=== PATIENT | female | born 1980 | race Hispanic/Latino ===

== ENCOUNTER 2018-09-24 09:21 | Inpatient (IN) | payer BC ==
[2018-09-24] MEDS ORDERED: DUONEB *Not for PRN Use IH ONE ×2 (09:41→10:47)
--- NOTE | 2018-09-24 10:17 | XRay Report ---
AP CHEST: HISTORY: Hypertension AP view of the chest demonstrates a normal mediastinal and cardiac contour with clear lungs and normal bony and soft tissue structures. IMPRESSION: Unremarkable AP chest.
[2018-09-24 10:20] LABS: Basophils % (Auto) 0.3 % (0.0-1.8); Eosinophils % (Auto) 0.4 % (0.0-4.3); Hematocrit 35.9 % (30.3-42.9); Hemoglobin 12.1 gm/dl (10.1-14.3); Lymphocytes # (Auto) 1.6 K/mm3 (1.2-5.4); Lymphocytes % (Auto) 23.6 % (13.4-35.0); Mean Corpuscular HGB Conc 34 % (30-34); Mean Corpuscular Volume 80 fl (79-97); Monocytes # (Auto) 0.4 K/mm3 (0.0-0.8); Monocytes % (Auto) 5.8 % (0.0-7.3); Platelet Count 288 K/mm3 (140-440); Red Blood Count 4.51 M/mm3 (3.65-5.03); Red Cell Distribution Width 16.3 % (13.2-15.2)
[2018-09-24 10:35] LABS: INR 0.89 (0.87-1.13)
[2018-09-24 10:36] LABS: Partial Thromboplastin Time 33.8 Sec. (24.2-36.6)
[2018-09-24 11:17] LABS: Alanine Aminotransferase 39 units/L (7-56); Albumin 3.8 g/dL (3.9-5); BUN/Creatinine Ratio 11; Blood Urea Nitrogen 9 mg/dL (7-17); Calcium 8.8 mg/dL (8.4-10.2); Hemolysis Index 4
[2018-09-24 11:18] LABS: Bilirubin,Direct < 0.2 mg/dL (0-0.2)
[2018-09-24] MEDS ORDERED: ATIVAN IV ONE (11:19)
[2018-09-24] MEDS ORDERED: NACL 0.9% 1000 ML 1,000 ML IV ONE (11:30)
--- NOTE | 2018-09-24 11:40 | Emergency Department Report ---
ED Shortness of Breath HPI - General Chief Complaint: Dyspnea/Respdistress Stated Complaint: ELENO Time Seen by Provider: 09/24/18 09:40 Source: patient, EMS Mode of arrival: Stretcher Limitations: No Limitations - History of Present Illness Initial Comments: This a 38-year-old female reports chest sedation of asthma work today. EMS was summoned. She received Solu-Medrol steroids and albuterol. She improved some degree. I do not have the benefit of the EMS report but have verified that she received the above medications. She complains of chest tightness which she states is associated with her asthma. Does not radiate. She does not complain of pleuritic pain. Does not complain of significant cough. She has never been intubated. MD Complaint: "asthma attack" -: Gradual Radiation: other (no radiation) Severity: moderate Quality: other (tightness associated with wheezing) Consistency: constant Improves With: nothing Worsens With: nothing Known History Of: asthma Associated Symptoms: denies other symptoms Treatments Prior to Arrival: other - Related Data Allergies Allergy/AdvReac Type Severity Reaction Status Date / Time levofloxacin [From Levaquin] Allergy Swelling Verified 09/24/18 09:26 ED Review of Systems ROS: Stated complaint: ELENO Other details as noted in HPI Constitutional: denies: chills, fever Eyes: denies: eye pain, eye discharge, vision change ENT: denies: ear pain, throat pain Respiratory: shortness of breath, wheezing. denies: cough Cardiovascular: denies: chest pain, palpitations Endocrine: no symptoms reported Gastrointestinal: denies: abdominal pain, nausea, diarrhea Genitourinary: denies: urgency, dysuria, discharge Musculoskeletal: denies: back pain, joint swelling, arthralgia Skin: denies: rash, lesions Neurological: denies: headache, weakness, paresthesias Psychiatric: denies: anxiety, depression Hematological/Lymphatic: denies: easy bleeding, easy bruising ED Past Medical Hx - Past Medical History Previous Medical History?: Yes Hx Hypertension: Yes Hx Deep Vein Thrombosis: Yes Hx Asthma: Yes Additional medical history: afib. hypothyroidism - Surgical History Past Surgical History?: Yes Additional Surgical History: eye sx. . BLE for DVT - Social History Smoking Status: Never Smoker Substance Use Type: None ED Physical Exam - General Limitations: No Limitations General appearance: alert, in no apparent distress, other (mildly increased work of breathing) - Head Head exam: Present: atraumatic, normocephalic - Eye Eye exam: Present: normal appearance. Absent: scleral icterus - ENT ENT exam: Present: mucous membranes moist - Neck Neck exam: Present: normal inspection. Absent: tenderness, meningismus - Respiratory Respiratory exam: Present: wheezes, decreased breath sounds, prolonged expiratory. Absent: respiratory distress - Cardiovascular Cardiovascular Exam: Present: normal rhythm, tachycardia. Absent: systolic murmur, diastolic murmur, rubs, gallop - GI/Abdominal GI/Abdominal exam: Present: soft, normal bowel sounds. Absent: distended, tenderness, guarding, rebound - Extremities Exam Extremities exam: Present: normal inspection - Back Exam Back exam: Present: normal inspection - Neurological Exam Neurological exam: Present: alert, oriented X3, CN II-XII intact. Absent: motor sensory deficit - Psychiatric Psychiatric exam: Present: normal affect, anxious - Skin Skin exam: Present: warm, dry, intact, normal color. Absent: rash ED Course Vital Signs 09/24/18 09/24/18 09/24/18 09:24 09:26 09:30 Temperature 98.3 F Pulse Rate 101 H Pulse Rate [ Posterior Bilateral Throughout] Respiratory 22 Rate Respiratory Rate [Posterior Bilateral Throughout] Blood Pressure 144/83 144/83 O2 Sat by Pulse 97 99 100 Oximetry 09/24/18 09/24/18 09/24/18 09:45 09:46 10:00 Temperature Pulse Rate Pulse Rate [ 79 Posterior Bilateral Throughout] Respiratory 22 Rate Respiratory 24 Rate [Posterior Bilateral Throughout] Blood Pressure 109/52 127/56 O2 Sat by Pulse 100 100 Oximetry 09/24/18 09/24/18 09/24/18 10:15 10:30 10:32 Temperature Pulse Rate 97 H 106 H Pulse Rate [ 90 Posterior Bilateral Throughout] Respiratory 13 19 Rate Respiratory 22 Rate [Posterior Bilateral Throughout] Blood Pressure 131/66 122/73 O2 Sat by Pulse 100 100 Oximetry 09/24/18 09/24/18 10:49 11:08 Temperature Pulse Rate Pulse Rate [ 98 H 92 H Posterior Bilateral Throughout] Respiratory Rate Respiratory 22 22 Rate [Posterior Bilateral Throughout] Blood Pressure O2 Sat by Pulse Oximetry - Reevaluation(s) Reevaluation #1: Patient received with some improvement but persistent distant breath sounds and no under sheriff's changed. She is not in respiratory distress. She is not utilizing accessory muscles. She complains of chest tightness with wheezing. D-dimer was negative. Chest x-ray showed no acute process. A repeat EKG will be reviewed. Patient was discussed with Dr. Noel the admitting hospitalist. 09/24/18 11:39 09/24/18 11:41 Twelve-lead EKG shows nonspecific ST-T wave changes. A repeat Xopenex treatment will be ordered. ED Medical Decision Making - Lab Data Result diagrams: 09/24/18 10:08 09/24/18 10:08 - EKG Data -: EKG Interpreted by Ut EKG shows normal: sinus rhythm, axis, intervals, QRS complexes, ST-T waves Rate: tachycardia - EKG Data Interpretation: nonspecific ST-T wave elissa A second EKG was performed. It shows sinus tachycardia slightly leftward axis nonspecific ST-T wave changes slightly prolonged QTC interval 09/24/18 11:40 09/24/18 11:41 - Radiology Data Radiology results: report reviewed Critical care attestation.: If time is entered above; I have spent that time in minutes in the direct care of this critically ill patient, excluding procedure time. ED Disposition Clinical Impression: Exacerbation of asthma Qualifiers: Asthma severity: severe Asthma persistence: persistent Qualified Code(s): J45.51 - Severe persistent asthma with (acute) exacerbation Chest pain Qualifiers: Chest pain type: unspecified Qualified Code(s): R07.9 - Chest pain, unspecified Disposition: 09 OP ADMIT IP TO THIS HOSP Is pt being admited?: Yes Does the pt Need Aspirin: Yes Condition: Stable Instructions: Chest Pain (ED) Referrals: EARNEST MCKEON MD [Primary Care Provider] - 3-5 Days Time of Disposition: 11:43
[2018-09-24] MEDS ORDERED: ASPIRIN PO ONE (11:44)
[2018-09-24] MEDS ORDERED: XOPENEX IH ONE (12:02)
[2018-09-24 12:46] LABS: Free T4 (Free Thyroxine) 1.21 ng/dL (0.76-1.46)
[2018-09-24] MEDS ORDERED: ASPIRIN ONE (12:58)
[2018-09-24] MEDS ORDERED: PERCOCET 5/325 PO PRN (20:51)
[2018-09-24] MEDS ORDERED: ZOFRAN IV PRN (20:51)
[2018-09-24] MEDS ORDERED: DILAUDID IV PRN (20:51)
[2018-09-24] MEDS ORDERED: TYLENOL PO PRN (20:51)
[2018-09-24] MEDS ORDERED: SODIUM CHLORIDE FLUSH SYRINGE 10 ML IV PRN (20:51)
--- NOTE | 2018-09-24 20:51 | History and Physical Report ---
History of Present Illness Date of examination: 09/24/18 Date of admission: 09/24/18 11:45 Chief complaint: Increasing SOB and wheezing for few hours. History of present illness: 38-year-old female comes in by EMS for increasing SOB and wheezing while at work.Was given Solumedrol IV enroute.COnt to wheeze persistently.Has cough productive of mucoid sputum.No fever or chills.No exacerbating or relieving factors. Past Medical History Previous Medical History?: Yes Hx Hypertension: Yes Hx Deep Vein Thrombosis: Yes Hx Asthma: Yes Additional medical history: afib. hypothyroidism Surgical History Past Surgical History?: Yes Additional Surgical History: eye sx. . BLE for DVT Social History Smoking Status: Never Smoker Substance Use Type: None Family History Htn Review of Systems ROS: Stated complaint: ELENO Other details as noted in HPI Constitutional: denies: chills, fever Eyes: denies: eye pain, eye discharge, vision change ENT: denies: ear pain, throat pain Respiratory: shortness of breath, wheezing. denies: cough Cardiovascular: denies: chest pain, palpitations Endocrine: no symptoms reported Gastrointestinal: denies: abdominal pain, nausea, diarrhea Genitourinary: denies: urgency, dysuria, discharge Musculoskeletal: denies: back pain, joint swelling, arthralgia Skin: denies: rash, lesions Neurological: denies: headache, weakness, paresthesias Psychiatric: denies: anxiety, depression Hematological/Lymphatic: denies: easy bleeding, easy bruising Medications and Allergies Allergies Allergy/AdvReac Type Severity Reaction Status Date / Time levofloxacin [From [facility]] Allergy Swelling Verified 09/24/18 12:59 Home Medications Medication Instructions Recorded Confirmed Last Taken Type Breo Ellipta 100-25 Mcg INH 100 mcg IH DAILY 09/25/18 09/25/18 1 Day Ago History ~09/24/18 100mcg/125mg Levothyroxine 175 mcg PO DAILY 09/25/18 09/25/18 1 Day Ago History ~09/24/18 Metoprolol SUCCINATE ER TAB 25 mg PO QAM 09/25/18 09/25/18 1 Day Ago History ~09/24/18 Pepcid 20 mg PO QHS 09/25/18 09/25/18 1 Day Ago History ~09/24/18 Exam - Constitutional Vitals: Temp Pulse Resp BP Pulse Ox 98.0 F 117 H 18 122/42 98 09/24/18 19:23 09/24/18 19:23 09/24/18 19:23 09/24/18 19:23 09/24/18 19:44 General appearance: Present: severe distress, well-nourished - EENT Eyes: Present: PERRL ENT: hearing intact, clear oral mucosa - Neck Neck: Present: supple, normal ROM - Respiratory Respiratory effort: normal Respiratory: bilateral: diminished, rhonchi, wheezing - Cardiovascular Heart rate: 88 Rhythm: regular Heart Sounds: Present: S1 & S2. Absent: rub, click - Extremities Extremities: no ischemia, pulses intact, pulses symmetrical, No edema Peripheral Pulses: within normal limits - Abdominal General gastrointestinal: Present: soft, non-tender, non-distended, normal bowel sounds Female genitourinary: Present: normal - Rectal Rectal Exam: deferred - Integumentary Integumentary: Present: clear, warm, dry - Musculoskeletal Musculoskeletal: gait normal, strength equal bilaterally - Psychiatric Psychiatric: appropriate mood/affect, intact judgment & insight - Neurologic Neurologic: CNII-XII intact, moves all extremities - Allied Health Allied health notes reviewed: nursing, case management Results - Labs CBC & Chem 7: 09/24/18 10:08 09/24/18 10:08 Labs: Laboratory Last Values WBC 6.9 K/mm3 (4.5-11.0) 09/24/18 10:08 RBC 4.51 M/mm3 (3.65-5.03) 09/24/18 10:08 Hgb 12.1 gm/dl (10.1-14.3) 09/24/18 10:08 Hct 35.9 % (30.3-42.9) 09/24/18 10:08 MCV 80 fl (79-97) 09/24/18 10:08 MCH 27 pg (28-32) L 09/24/18 10:08 MCHC 34 % (30-34) 09/24/18 10:08 RDW 16.3 % (13.2-15.2) H 09/24/18 10:08 Plt Count 288 K/mm3 (140-440) 09/24/18 10:08 Lymph % (Auto) 23.6 % (13.4-35.0) 09/24/18 10:08 [place] % (Auto) 5.8 % (0.0-7.3) 09/24/18 10:08 Eos % (Auto) 0.4 % (0.0-4.3) 09/24/18 10:08 Baso % (Auto) 0.3 % (0.0-1.8) 09/24/18 10:08 Lymph # 1.6 K/mm3 (1.2-5.4) 09/24/18 10:08 [place] # 0.4 K/mm3 (0.0-0.8) 09/24/18 10:08 Eos # 0.0 K/mm3 (0.0-0.4) 09/24/18 10:08 Baso # 0.0 K/mm3 (0.0-0.1) 09/24/18 10:08 Seg Neutrophils % 69.9 % (40.0-70.0) 09/24/18 10:08 Seg Neutrophils # 4.8 K/mm3 (1.8-7.7) 09/24/18 10:08 PT 12.6 Sec. (12.2-14.9) 09/24/18 10:08 INR 0.89 (0.87-1.13) 09/24/18 10:08 APTT 33.8 Sec. (24.2-36.6) 09/24/18 10:08 198.07 ng/mlDDU (0-234) 09/24/18 10:08 Sodium 137 mmol/L (137-145) 09/24/18 10:08 Potassium 3.4 mmol/L (3.6-5.0) L 09/24/18 10:08 Chloride 103.2 mmol/L (98-107) 09/24/18 10:08 Carbon Dioxide 21 mmol/L (22-30) L 09/24/18 10:08 16 mmol/L 09/24/18 10:08 BUN 9 mg/dL (7-17) 09/24/18 10:08 0.8 mg/dL (0.7-1.2) 09/24/18 10:08 Estimated GFR > 60 ml/min 09/24/18 10:08 11 % 09/24/18 10:08 Glucose 129 mg/dL (65-100) H 09/24/18 10:08 Calcium 8.8 mg/dL (8.4-10.2) 09/24/18 10:08 0.20 mg/dL (0.1-1.2) 09/24/18 10:08 < 0.2 mg/dL (0-0.2) 09/24/18 10:08 0.0 mg/dL 09/24/18 10:08 AST 25 units/L (5-40) 09/24/18 10:08 ALT 39 units/L (7-56) 09/24/18 10:08 76 units/L (35-129) 09/24/18 10:08 < 0.010 ng/mL (0.00-0.029) 09/24/18 10:08 NT-Pro-B Natriuret Pep 41.41 pg/mL (0-450) 09/24/18 10:08 6.8 g/dL (6.3-8.2) 09/24/18 10:08 3.8 g/dL (3.9-5) L 09/24/18 10:08 1.3 % 09/24/18 10:08 TSH 0.267 mlU/mL (0.270-4.200) L 09/24/18 12:01 Free T4 1.21 ng/dL (0.76-1.46) 09/24/18 12:01 Short CBC 09/24/18 Range/Units 10:08 WBC 6.9 (4.5-11.0) K/mm3 Hgb 12.1 (10.1-14.3) gm/dl Hct 35.9 (30.3-42.9) % Plt Count 288 (140-440) K/mm3 BMP 09/24/18 10:08 Sodium 137 Potassium 3.4 L Chloride 103.2 Carbon Dioxide 21 L BUN 9 Creatinine 0.8 Glucose 129 H Calcium 8.8 Cardiac Enzymes 09/24/18 Range/Units 10:08 Troponin T < 0.010 (0.00-0.029) ng/mL Liver Function 09/24/18 Range/Units 10:08 Total Bilirubin 0.20 (0.1-1.2) mg/dL Direct Bilirubin < 0.2 (0-0.2) mg/dL AST 25 (5-40) units/L ALT 39 (7-56) units/L Alkaline Phosphatase 76 (35-129) units/L Albumin 3.8 L (3.9-5) g/dL - Imaging and Cardiology EKG: report reviewed (Sinus Tachycardia HR of 113 /min) Chest x-ray: report reviewed (NAF) Assessment and Plan Advance Directives: Yes (Full code) VTE prophylaxis?: Chemical Plan of care discussed with patient/family: Yes - Patient Problems (1) Acute respiratory failure Current Visit: Yes Status: Acute Qualifiers: Respiratory failure complication: hypoxia Qualified Code(s): J96.01 - Acute respiratory failure with hypoxia Plan to address problem: Patient is Tachyupneic and achycardic IV Abx IV solumedrol and Nebulizer tx BIpap and Intubation if necessary (2) Exacerbation of asthma Current Visit: Yes Status: Acute Qualifiers: Asthma severity: severe Asthma persistence: persistent Qualified Code(s): J45.51 - Severe persistent asthma with (acute) exacerbation Plan to address problem: patient initiated on IV solumedrol Neb tx and IV abx (3) HTN (hypertension) Current Visit: Yes Status: Chronic Qualifiers: Hypertension type: essential hypertension Qualified Code(s): I10 - Essential (primary) hypertension Plan to address problem: Cont Metoprolol (4) Hypothyroidism (acquired) Current Visit: Yes Status: Chronic Plan to address problem: TSH lowand Adjust synthyuroid dosage to a lower level to 150 mcgl (5) GERD (gastroesophageal reflux disease) Current Visit: Yes Status: Chronic Qualifiers: Esophagitis presence: with esophagitis Qualified Code(s): K21.0 - Gastro- esophageal reflux disease with esophagitis Plan to address problem: Cont Pepcid (6) Hypokalemia Current Visit: Yes Status: Acute Plan to address problem: Supplemented (7) DVT prophylaxis Current Visit: Yes Status: Acute Plan to address problem: on Lovenox and GI prophylaxis
[2018-09-24] MEDS ORDERED: PROVENTIL IH PRN (20:54)
[2018-09-24] MEDS ORDERED: K-DUR PO ONE (20:55)
[2018-09-24] MEDS ORDERED: LEVAQUIN 750MG/150ML 750 MG/150 ML BAG IV SCH (21:00)
[2018-09-24] MEDS ORDERED: PEPCID PO SCH (22:00)
[2018-09-24] MEDS ORDERED: ROCEPHIN/NS 2 GM/100 ML 2 GM/100 ML BAG IV SCH (22:00)
[2018-09-24] MEDS: SOLU-Medrol IV SCH (22:24)
[2018-09-24] MEDS: SODIUM CHLORIDE FLUSH SYRINGE 10 ML IV SCH (22:26)
[2018-09-24] MEDS ORDERED: ZITHROMAX 500 MG in NACL 0.9% 250ML 250 ML IV SCH (23:00)
[2018-09-25] MEDS ORDERED: SYNTHROID PO SCH ×2 (06:00→06:21)
[2018-09-25] MEDS ORDERED: K-DUR PO ONE (06:42)
[2018-09-25 07:18] LABS: Hematocrit 34.5 % (30.3-42.9); Hemoglobin 11.4 gm/dl (10.1-14.3); Mean Corpuscular HGB Conc 33 % (30-34); Mean Corpuscular Volume 81 fl (79-97); Platelet Count 302 K/mm3 (140-440); Red Blood Count 4.28 M/mm3 (3.65-5.03); Red Cell Distribution Width 16.5 % (13.2-15.2)
[2018-09-25 07:45] LABS: Alanine Aminotransferase 33 units/L (7-56); Albumin 3.8 g/dL (3.9-5); BUN/Creatinine Ratio 17; Blood Urea Nitrogen 10 mg/dL (7-17); Calcium 8.9 mg/dL (8.4-10.2); Hemolysis Index 4
[2018-09-25] MEDS ORDERED: PULMICORT IH SCH (08:00)
[2018-09-25] MEDS ORDERED: DUONEB *Not for PRN Use IH SCH (08:00)
[2018-09-25] MEDS ORDERED: BROVANA NEBU IH SCH (08:00)
[2018-09-25] MEDS: DUONEB *Not for PRN Use IH SCH ×2 (08:36→14:53)
[2018-09-25] MEDS ORDERED: BREO ELLIPTA IH SCH (10:00)
[2018-09-25] MEDS ORDERED: TOPROL XL PO SCH (10:00)
[2018-09-25] MEDS: SOLU-Medrol IV SCH (10:13)
[2018-09-25] MEDS: SODIUM CHLORIDE FLUSH SYRINGE 10 ML IV SCH (10:14)
[2018-09-25 10:39] LABS: Anisocytosis 1+; Band Neutrophils # (Manual) 0.2 K/mm3; Basophils % (Manual) 0 % (0.0-1.8); Eosinophils % (Manual) 0 % (0.0-4.3); Large Platelets Rare; Platelet Estimate Consistent w Auto; Total Cells Counted 100
--- NOTE | 2018-09-25 15:19 | Discharge Summary ---
Providers - Providers Date of Admission: 09/24/18 11:45 Date of discharge: 09/25/18 Attending physician: ZIA LACEY Primary care physician: EARNEST MCKEON Hospitalization Reason for admission: Worsening shortness of breath Condition: Stable Pertinent studies: CXR : normal study Hospital course: 38-year-old female comes in by EMS for increasing SOB and wheezing while at work.Was given Solumedrol IV enroute.COnt to wheeze persistently.Has cough productive of mucoid sputum.No fever or chills.No exacerbating or relieving factors. Noted to be in acute exacerbation of Asthma,managed appropriately and symptoms significantly improved. Today patient is comfortable,no new complaints,vital signs stable Physical exam unremarkable. Stable at discharge Discharge Diagnosis: --Acute hypoxic resp failurer: Oxygen,Bipap as needed Due to acute exacerbation of asthma. Symptoms significantly improved --Acute exacerbation of Asthma: continue tapering doses IV solumedrol Neb tx and IV abx and supportive care , discharge on tapering oral steroids --Hypertension: Modetate control,Cont Metoprolol --Hypothyroidism ;TSH low,probably over correction synthyuroid dosage adjusted --GERD: Cont Pepcid --Hypokalemia:Supplemented monitor potassium levels --DVT prophylaxis: cont Lovenox ,increase ambulation Disposition: DC-01 TO HOME OR SELFCARE Time spent for discharge: 31 min Core Measure Documentation - Palliative Care Palliative Care/ Comfort Measures: Not Applicable - Core Measures Any of the following diagnoses?: none Exam - Constitutional Vitals: Temp Pulse Resp BP Pulse Ox 97.8 F 88 18 118/64 97 09/25/18 11:50 09/25/18 15:03 09/25/18 15:03 09/25/18 11:50 09/25/18 11:50 General appearance: Present: no acute distress, well-nourished, obese - EENT Eyes: Present: PERRL, EOM intact - Neck Neck: Present: supple, normal ROM - Respiratory Respiratory effort: normal Respiratory: bilateral: diminished, wheezing, negative: rales, rhonchi - Cardiovascular Rhythm: regular Heart Sounds: Present: S1 & S2 - Extremities Extremities: no ischemia, No edema - Integumentary Integumentary: Present: clear, warm - Musculoskeletal Musculoskeletal: strength equal bilaterally - Psychiatric Psychiatric: appropriate mood/affect - Neurologic Neurologic: CNII-XII intact, moves all extremities Plan Activity: no restrictions Diet: low salt Additional Instructions: Advised to see private hospice consultant as needed. Advise exercise as tolerated and weight reduction when medically stable. Patient's resting room air and ambulatory room air O2 sats more than 95%. No indication for home oxygen Follow up with: EARNEST MCKEON MD [Primary Care Provider] - 3-5 Days Forms: Work/School Release Form Prescriptions: Prednisone [predniSONE 10 mg (6-Day Pack, 21 Tabs)] 10 mg PO .TAPER #1 tab.ds.pk ALBUTEROL Inhaler (OR & NICU) [ProAir HFA Inhaler] 2 puff IH QID PRN #1 inhalation PRN Reason: Shortness Of Breath Azithromycin [Zithromax Z-RIC] 0 mg PO DAILY #1 tab
[2018-09-25 15:30] VITALS: BP 118/49
[2018-09-25] MEDS ORDERED: PEPCID PO SCH (22:00)
[2018-09-26] MEDS ORDERED: SYNTHROID PO SCH (06:00)
== END 2018-09-25 16:32 | disposition home or self-care (01) | DRG 189 ==
LOC: ED 09:21 → 4A 11:45
PROVIDERS: ADMIT Internal Medicine; ATTEND Internal Medicine
DX: J96.01 Acute respiratory failure with hypoxia (principal); J45.51 Severe persistent asthma with (acute) exacerbation; E87.6 Hypokalemia; I10 Essential (primary) hypertension; I48.91 Unspecified atrial fibrillation; E03.9 Hypothyroidism, unspecified; K21.0 Gastro-esophageal reflux disease with esophagitis; Z86.718 Personal history of other venous thrombosis and embolism; Z88.1 Allergy status to other antibiotic agents; Z79.899 Other long term (current) drug therapy
CPT/HCPCS: 36415; 71045; 80048; 80053; 80076; 83036; 83880; 84439; 84443; 84484; 85007; 85025; 85379; 85610; 85730; 93005; 93010; 94640; 94644; 94760; G0378; J0456; J0696; J2060; J2930; J7030; J7050